=== PATIENT | male | born 1995 | race Hispanic/Latino ===

== ENCOUNTER 2024-04-11 09:49 | Emergency (ER) | payer BC, OTHER ==
[2024-04-11] MEDS ORDERED: Ondansetron PF 4 MG/2 ML Vial ONE (10:17)
[2024-04-11 10:24] LABS: #Basophils 0.1 thou/uL (0.0-0.2); #Eosinophils 0.3 thou/uL (0.0-0.7); #Lymphocytes 0.9 thou/uL (1.20-3.40); #Monocytes 0.7 thou/uL (0.11-0.59); #Neutrophils 11.6 thou/uL (1.40-6.50); %Basophils 0.6 % (0.0-1.0); %Eosinophils 1.9 % (0.0-10.0); %Lymphocytes 6.3 % (21.0-51.0); %Monocytes 5.1 % (0.0-10.0); Hematocrit 48.9 % (42.0-52.0); Hemoglobin 16.4 g/dL (14.0-18.0); Mean Corpuscular HGB CONC 33.6 g/dL (32.0-36.0); Mean Corpuscular Hemoglobin 30.4 pg (27.0-31.0); Mean Corpuscular Volume 90.5 fl (78.0-98.0); Mean Platelet Volume 5.7 fL (7.4-10.4); Platelet Count 256 10x3/uL (130-400); RBC Distribution Width 10.2 % (11.5-14.5); Red Blood Cell (RBC) Count 5.41 mill/uL (4.70-6.10); White Blood Cell (WBC) Count 13.5 10x3/uL (4.8-10.8)
[2024-04-11 10:41] LABS: ALT (SGPT) 23 U/L (8-55); AST (SGOT) 22 U/L (5-34); Alkaline Phosphatase 86 U/L (40-110); Anion Gap 13 mmol/L (10-20); BUN (Urea Nitrogen) 17 mg/dL (8.9-20.6); Bilirubin, Total 0.8 mg/dL (0.2-1.2); Calc. Creatinine Clearance 0 mL/min (70-130); Calcium 9.6 mg/dL (7.8-10.44); Carbon Dioxide 26 mmol/L (22-29); Chloride 105 mmol/L (98-107); Estimated GFR 94; Globulin 2.4 g/dL (2.4-3.5); Glucose 93 mg/dL (70-105); Lipase 19 U/L (8-78); Potassium 4.2 mmol/L (3.5-5.1); Protein, Total 7.4 g/dL (6.0-8.3); Sodium 140 mmol/L (136-145)
[2024-04-11 11:25] LABS: Bilirubin Negative (Negative); Blood, Urine Trace (Negative); Clarity Clear (Clear); Glucose, Urine (Dipstick) Negative (Negative); Ketone, Urine Negative (Negative); Leukocyte Negative (Negative); Nitrite Negative (Negative); Protein, Urine (Dipstick) Negative (Neg-Trace); Urobilinogen 0.2 mg/dL (Less than 2); pH, Urine 5.5 (5.0-9.0)
[2024-04-11 11:27] LABS: Specific Gravity, Urine 1.006 (1.002-1.036)
[2024-04-11 11:55] LABS: Bacteria/HPF Rare-Few HPF (None Seen); CAUTI Indications for Culture Dysuria,urgency,freq; RBC/HPF 0-3 HPF (0-3); Squamous Epithelial 0-3 HPF (0-3); WBC/HPF 0-3 HPF (0-3)
[2024-04-11 11:57] LABS: Urine Culture Reflex No No
[2024-04-11] MEDS ORDERED: HYDROcodone/Acetaminophen 5/325 mg Tablet ONE (12:10)
== END 2024-04-11 12:17 | disposition home or self-care (01) ==
LOC: BURERS 09:49
DX: E86.0 Dehydration (principal); N20.0 Calculus of kidney; R11.2 Nausea with vomiting, unspecified; F17.200 Nicotine dependence, unspecified, uncomplicated
CPT/HCPCS: 74176; 80053; 81001; 83605; 83690; 85025; 96361; 96374; J2405

== ENCOUNTER 2024-05-09 10:13 | Emergency (ER) | payer OTHER | END 2024-05-09 11:20 | disposition home or self-care (01) | LOC: BURERS 10:13 | DX: J06.9 Acute upper respiratory infection, unspecified (principal); F17.200 Nicotine dependence, unspecified, uncomplicated | CPT/HCPCS: 87428; 99283 ==